=== PATIENT | male | born 1970 | race Caucasian/White ===

== ENCOUNTER 2024-05-26 19:31 | Inpatient (IN) | payer MEDICAID, SELFPAY ==
[2024-05-26 19:32] VITALS: BMI 35.9
[2024-05-26 19:41] VITALS: BP 156/91; PULSE 114; RESP 19; TEMP 37.9; O2SAT 96
--- NOTE | 2024-05-26 19:56 | XR_ITS ---
Examination: Duplex scan of the lower extremity, unilateral right complete Date and time of exam: May 26, 2024 2146 hrs. Indications: Right leg swelling and pain redness in the calf. Today Technique: Duplex scan of the extremity veins using B-mode/grayscale imaging and Doppler spectral analysis and color flow Attention is directed to internal echogenicity, compression and augmentation involving these veins, color flow assessment, spectral analysis Findings: Major deep venous structures in the extremity demonstrate normal course and caliber. No diagnostic visualization right peroneal vein There is no evidence of deep vein thrombosis. Normal color flow and spectral analysis Impression: Negative for DVT..
--- NOTE | 2024-05-26 19:57 | XR_ITS ---
Examination: Foot, right, 3 views Technique: AP, oblique, lateral views foot, 3 views Date and time of exam: May 26, 20242003 hrs. Indications: Nonhealing wound plantar surface of the heel 6 months Findings: Prominent osteopenia No fracture No miguelina cortical bone destruction No foreign body Impression: No miguelina cortical bone obstruction Consider MRI foot without contrast follow-up
--- NOTE | 2024-05-26 19:58 | EDRME_ITS ---
Rapid Medical Screening Exam [facility] Arrival date/time: 05/26/24 19:31 54M with history of HTN and various bilateral hip surgeries presents to ED with several days of R lower leg pain, redness swelling, and fevers/chills. Patient has a wound/cut on his R heel that he doesn't know how long has been there. Patient denies known history of DM. Chief Complaint: Extremity Injury, Lower Vital signs: Vital Signs Temperature 100.3 F 05/26/24 19:41 Pulse Rate 114 H 05/26/24 19:41 Respiratory Rate 19 05/26/24 19:41 Blood Pressure 156/91 H 05/26/24 19:41 Pulse Oximetry (%) 96 05/26/24 19:41 Oxygen Delivery Method Room Air 05/26/24 19:41
[2024-05-26 20:14] LABS: Lactate (Lactic Acid) 1.6 mMol/L (0.4-2.0)
[2024-05-26 20:16] LABS: Basophils # (Auto) 0.1 Thou/mm3 (0.0-0.2); Basophils % (Auto) 0 % (0-2.5); Eosinophils % (Auto) 0 % (0-10); Hematocrit 45.2 % (41.0-53.0); Hemoglobin 15.8 g/dL (13.5-16.0); Immature Granulocytes % (Auto) 0 % (0-0); Immature Granulocytes Auto 0.09 Thou/mm3 (0.00-0.00); Lymphocytes # (Auto) 0.9 Thou/mm3 (1.0-4.8); Lymphocytes % (Auto) 4 % (10-50); Mean Corpuscular Hemoglobin 30.7 pg (25.0-35.0); Mean Corpuscular Volume 88 fL (80-100); Monocytes # (Auto) 0.7 Thou/mm3 (0.0-0.8); Monocytes % (Auto) 3 % (0-12); Neutrophils # (Auto) 19.7 Thou/mm3 (1.8-7.7); Neutrophils % (Auto) 92 % (37-80); Nucleated Red Blood Cell % 0 /100 WBC (0); Platelet Count 180 Thou/mm3 (140-440); RDW Standard Deviation 42.7 fL (35.1-43.9); Red Blood Count 5.14 Miln/mm3 (4.50-5.90); White Blood Count 21.5 Thou/mm3 (3.8-10.6)
[2024-05-26 20:39] LABS: Alanine Aminotransferase 54 U/L (10-49); Albumin, Serum 4.6 gm/dL (3.5-5.0); Albumin/Globulin Ratio 1.8 (1.2-2.2); Alkaline Phosphatase 62 U/L (46-116); Anion Gap 6 (7-16); Aspartate Amino Transferase 37 U/L (0-34); BUN/Creatinine Ratio 12 Ratio (12-20); Bilirubin,Total 1.3 mg/dL (0.3-1.2); Blood Urea Nitrogen 11 mg/dL (9-23); Calcium 9.8 mg/dL (8.3-10.6); Calcium (Corrected) 9.8 mg/dL (8.5-10.1); Carbon Dioxide 25.1 mMol/L (20.0-31.0); Chloride 101 mMol/L (98-107); Creatinine (Component) 0.9 mg/dL (0.6-1.3); Estimated Creatinine Clearance 131.3 mL/min (>60); Globulin 2.6 gm/dL (2.3-3.5); Glucose 121 mg/dL (74-106); Osmolality,Calculated 264 (275-295); Procalcitonin 0.88 ng/ml (0.0-0.49); Sodium 132 mMol/L (136-145); Total Protein 7.2 gm/dL (5.7-8.2); eGFR > 60 See Note
--- NOTE | 2024-05-26 20:56 | XR_ITS ---
Examination: Tibia-Fibula, right , 2 views Technique: Tibia-fibula AP lateral 2 views Date and time of exam: May 26, 2024 2101 hrs. Indications: Nonhealing wound in the lower leg 6 months Findings: No fracture or dislocation No miguelina cortical bone destruction Impression: No miguelina cortical bone obstruction
--- NOTE | 2024-05-26 21:01 | EDNOTE_ITS ---
ED Skin Abcess FB-RME/HPI General Chief complaint: Extremity Injury, Lower Stated complaint: RIGHT LEG PAIN, FEVER Arrival date/time: 05/26/24 19:31 RME / HPI RME / HPI narrative: 05/26/24 19:31 54M with history of HTN on losartan, hip surgeries by , presented to the ED due to history of 1 day of right lower extremity pain and swelling. Patient reported that he started to have right leg and heel pain that started acutely over the past 24 hours. The patient also reported hotness and redness of his right leg associated with chills and fever. Patient denied any history of trauma or fall down, however he reported that he has chronic leg fissures on the heel. His reported that he does not wear safety boots and sometimes walk barefoot or use sandals. also reported that she noticed some swelling of his ankle however he denied any shortness of breath, chest pain, orthopnea or paroxysmal nocturnal dyspnea. Related Data Home Medications ?Medication ?Instructions ?Recorded ?Confirmed ibuprofen 800 mg tablet 800 mg PO Q8H PRN Pain 01/31/24 05/26/24 losartan 100 mg tablet 100 mg PO HS 02/02/24 05/26/24 tramadol 50 mg tablet 50 mg PO [id number] PRN Pain 05/26/24 05/26/24 Previous Rx's ?Medication ?Instructions ?Recorded acetaminophen 500 mg tablet 1,000 mg (2 x 500 mg) PO Q6H PRN 02/24/24 (Acetaminophen Extra Strength) pain #90 tabs Allergies Allergy/AdvReac Type Severity Reaction Status Date / Time No Known Allergies Allergy Verified 05/26/24 19:35 ED Exam Narrative Physical exam: GEN: AOx3, able to speak full sentences HEENT: NC/AC, oral mucosa moist, neck supple CVS: RRR, S1-S2 present, no murmurs appreciated RESP: CTAB GI: soft,non distended, non tender, NBS MSK: able to move all 4 limbs, no lower extremity edema SKIN: Right leg swelling, redness, hotness and tenderness extending from the ankle up to the upper third of the right leg. Pulses intact, black discoloration of the second and third nail toe was noticed however patient denied any trauma. Chronic fissure was noticed on the right heel however no signs of discharge or redness. [employer] OFFICER: CN II-XII and Sensation grossly intact. Course Quality Measures Current suspected stage: sepsis Possible source: skin/soft tissue Blood cultures ordered: yes Antibiotic ordered: Yes Pertinent labs: 05/26/24 20:05 Lactic Acid 1.6 mMol/L (0.4-2.0) Procalcitonin 0.88 H ng/ml (0.0-0.49) sepsis Orders Category Date Time Status US venous doppler LE RT Stat Exams 05/26/24 19:56 Completed XR foot comp RT min 3V Stat Exams 05/26/24 19:57 Completed XR tibia fibula RT 2V Stat Exams 05/26/24 20:56 Completed Blood Culture (Lab) Stat Lab 05/26/24 20:05 Received CBC Stat Lab 05/26/24 20:05 Completed CMP [Comprehensive Metabolic Panel] Stat Lab 05/26/24 20:05 Completed CRP [C-Reactive Protein] Stat Lab 05/26/24 20:05 Completed ESR [Sed Rate (ESR)] Stat Lab 05/26/24 20:05 Completed Lactate (Lactic Acid) Stat Lab 05/26/24 20:05 Completed Procalcitonin Stat Lab 05/26/24 20:05 Completed UA [Urinalysis] Stat Lab 05/27/24 00:20 Received Urine Culture Stat Lab 05/27/24 00:20 Received Acetaminophen Tab [Tylenol ES Tab] Med 05/26/24 21:11 Discontinued 1,000 mg PO X1 ONE Clindamycin 900Mg Ivpb [Cleocin/D5w Ivpb] 50 ml Med 05/26/24 20:56 Discontinued IV X1 Labetalol IV [Trandate IV] Med 05/26/24 22:31 Discontinued 10 mg IVP X1 ONE Ringers Lactated 1000 ml [Lactated Ringers] 1,000 ml Med 05/26/24 20:54 Discontinued IV 999 mls/hr Ringers Lactated 1000 ml [Lactated Ringers] 1,000 ml Med 05/26/24 20:54 Discontinued IV 999 mls/hr Sodium Chloride 0.9% 1000 ml [Ns] 1,000 ml Med 05/26/24 21:16 Discontinued IV 999 mls/hr Sodium Chloride 0.9% 1000 ml [Ns] 1,000 ml Med 05/26/24 21:17 Discontinued IV 999 mls/hr cefTRIAXone/D5w 1gm IV premix [Rocephin/D5w 1gm IV Med 05/26/24 20:55 Discontinued premix] 50 ml IV QDAY Vital Signs Vital signs: Vital Signs Temperature 100.3 F 05/26/24 19:41 Pulse Rate 114 H 05/26/24 19:41 Respiratory Rate 19 05/26/24 19:41 Blood Pressure 156/91 H 05/26/24 19:41 Pulse Oximetry (%) 96 05/26/24 19:41 Oxygen Delivery Method Room Air 05/26/24 19:41 Skin / Abscess / Foreign Body MDM Narrative MDM Narrative:: X-ray of the right foot was negative for any fracture or osteomyelitis. Patient met sepsis criteria with WBC of 21, pulse rate of 105, temperature of 100.3, and source of infection cellulitis. We ordered for the patient venous Doppler ultrasound of the right lower extremity to rule out any DVT. We started the patient on IV fluid therapy and intravenous ceftriaxone and clindamycin. Will consult the hospitalist for possible admission. Patient data External records reviewed:: [facility] previous records Clinical information provided by:: patient Social determinants that could affect healthcare access:: alcohol use Patient has the following chronic illnesses:: HTN Alcohol use disorder How is presenting disease/condition affected by chronic disease/condition?: uneffected by Evaluation data The following diagnostics were reviewed and interpreted by me:: lab results, radiology exam(s) and EKG tracing(s) Lab and/or radiology exams considered but not ordered:: None Interpretation Summary: Sepsis secondary to Ceullulitis of the right leg Chronic right foot ulcer Medications / Prescriptions Medications or Prescriptions considered but not ordered:: None Medication administrations:: Medication Administration History Acetaminophen (Acetaminophen 325 Mg Tablet) 650 mg PO Q6H PRN PRN Reason: Fever >101.5 Stop: 06/25/24 22:54 Amlodipine Besylate (Amlodipine Besylate 5 Mg Tablet) 5 mg PO QDAY [facility] Stop: 06/26/24 08:59 Heparin Sodium (Porcine) (Heparin Sod Inj 5000 Unit/Ml Vial) 5,000 unit SC Q8HR [facility] Stop: 06/10/24 05:59 Sodium Chloride (Ns) 1,000 mls @ 75 mls/hr IV .[id number] ONE Stop: 05/27/24 12:18 Last Admin: 05/27/24 00:36 Dose: 75 mls/hr Documented By: KELLY Cefazolin Sodium/Dextrose (Ancef Ivpb) 1 gm in 50 mls @ 100 mls/hr IV Q8HR [facility] Stop: 06/02/24 23:06 Last Admin: 05/27/24 00:35 Dose: 100 mls/hr Documented By: KELLY Vancomycin/Sodium Chloride (Vancomycin/Ns 1 Gm Ivpb) 200 mls @ 120 mls/hr IV Q100M [facility] Stop: 05/27/24 02:34 Losartan Potassium (Losartan Potassium 25 Mg Tablet) 100 mg PO QDAY [facility] Stop: 06/26/24 08:59 Ondansetron HCl (Ondansetron Inj 2 Mg/Ml Inj 2 Ml) 4 mg IV Q6H PRN; Protocol PRN Reason: NAUSEA OR VOMITING Stop: 06/25/24 22:54 Oxycodone/Acetaminophen (Oxycodone/Apap 5/325 Tablet) 1 tab PO Q6H PRN PRN Reason: PAIN SCALE 4-6 (Moderate Stop: 05/31/24 22:54 Pharmacy Consult (Vancomycin Pharmacy To Dose 1 Each Each) 1 each IV QDAY [facility] Stop: 06/26/24 08:59 Discontinued Medications Acetaminophen (Acetaminophen 500 Mg Tablet) 1,000 mg PO X1 ONE Stop: 05/26/24 21:12 Last Admin: 05/26/24 21:19 Dose: 1,000 mg Documented By: KELLY Lactated Ringer's (Lactated Ringers) 1,000 mls @ 999 mls/hr IV .Q1H1M ONE Stop: 05/26/24 21:54 Last Admin: 05/26/24 22:04 Dose: Not Given Documented By: MOE Non-Admin Reason: Discontinued Lactated Ringer's (Lactated Ringers) 1,000 mls @ 999 mls/hr IV .Q1H1M ONE Stop: 05/26/24 21:54 Last Admin: 05/26/24 22:04 Dose: Not Given Documented By: MOE Non-Admin Reason: Discontinued Ceftriaxone Sodium/Dextrose (Rocephin/D5w 1gm Iv Premix) 50 mls @ 100 mls/hr IV QDAY [facility] Stop: 06/02/24 20:54 Last Infusion: 05/26/24 22:27 Dose: Infused Documented By: Admin: 05/26/24 21:14 Dose: 100 mls/hr Documented By: KELLY Clindamycin Phosphate (Cleocin/D5w Ivpb) 50 mls @ 100 mls/hr IV X1 ONE Stop: 05/26/24 21:25 Last Infusion: 05/26/24 22:26 Dose: Infused Documented By: Admin: 05/26/24 21:21 Dose: 100 mls/hr Documented By: TC Sodium Chloride (Ns) 1,000 mls @ 999 mls/hr IV .Q1H1M ONE Stop: 05/26/24 22:16 Last Infusion: 05/26/24 22:27 Dose: Infused Documented By: Admin: 05/26/24 21:20 Dose: 999 mls/hr Documented By: TC Sodium Chloride (Ns) 1,000 mls @ 999 mls/hr IV .Q1H1M ONE Stop: 05/26/24 22:17 Last Infusion: 05/26/24 22:27 Dose: Infused Documented By: Admin: 05/26/24 21:21 Dose: 999 mls/hr Documented By: TC Labetalol HCl (Labetalol Inj 5 Mg/Ml Vial 20 Ml) 10 mg IVP X1 ONE Stop: 05/26/24 22:32 Last Admin: 05/26/24 22:37 Dose: 10 mg Documented By: TC As above if given Consultations Consultation(s) initiated? (list below): Yes Diagnosis Skin/Abscess Differential Diagnosis: abscess of skin or subcutaneous tissue, allergic reaction to drug, cellulitis and impetigo Most likely diagnosis given after review of the tests above:: Cellulitis Admission Indicated Admission indicated?: indicated Admission Request Was there a request for admission?: Yes Admission Attestation Admission request attestation: Discussed case with [] from Hospitalist service regarding admission. Discussed patients ED course, exam findings, labs, and radiology results. The Hospitalist [agrees,declines] to accept the patient for admission. Disposition Plan Disposition Plan: Admit Discharge Plan Plan Patient Disposition: Admit Acute Care w/in Hospital Problem List Clinical Impression: Cellulitis of leg, right
[2024-05-26] MEDS: cefTRIAXone/D5w 1gm IV premix 50 ML IV (21:14)
[2024-05-26 21:15] LABS: Sed Rate (ESR) 19 mm/hr (0-20)
[2024-05-26 21:19] VITALS: TEMP 37.2
[2024-05-26] MEDS: ACETAMINOPHEN 500 MG TABLET 1000 MG PO (21:19)
[2024-05-26] MEDS: SODIUM CHLORIDE 0.9% 1000 ML 1,000 ML 999 ML IV ×2 (21:20→21:21)
[2024-05-26] MEDS: CLINDAMYCIN 900MG IVPB 50 ML 100 MG IV (21:21)
[2024-05-26 22:37] VITALS: BP 209/138; PULSE 96
[2024-05-26] MEDS: LABETALOL INJ 5 MG/ML VIAL 20 ML 10 MG IVP (22:37)
--- NOTE | 2024-05-26 23:08 | PD.RESHP ---
Documentation for date of: 05/26/24 [facility] History of Present Illness History of present illness: 54-year-old male patient with significant medical history for obesity, b/l hip replacement and hypertension came into ED for right leg swelling and pain that started x 24 hours ago. Patient has also been endorsing intermittent chills and fevers with the highest temperature being 101 F at home. Patient denied nausea, vomiting, chest pain/pressure, diarrhea, abdominal pain or other associate symptoms. Patient does have a history of chronic right heel fissure and usually walks barefoot on his for. Patient denied having any other trauma to the foot. ED vitals significant for BP 156/91, pulse 114, temperature 100.3 which up trended to 102.6 F. Labs were significant for WBC 21.5, glucose 121, T. bili 1.3, AST 37, ALT 54, CRP 15, procalcitonin 0.88. Foot and tibia-fibula x-ray were negative for cortical bone destruction. Venous Doppler study was negative for DVT. Patient was administered bolus IVF per sepsis protocol and will be admitted for cellulitis requiring IV antibiotics. Medical Hx: Hypertension and obesity Medications (need reconciliation): Lisinopril and amlodipine Surgical Hx: b/l hip replacement Social Hx: Denies smoking cigarettes, drinks 6 beers/day since age 17 (last alcohol intake x2 days ago) Allergies: NKDA CODE STATUS: Full code Review of Systems Review of Systems Systems Reviewed: All systems reviewed, normal except as documented Exam Vital Signs Temp Pulse Resp BP Pulse Ox O2 Del Method 98.9 F 96 19 209/138 H 96 Room Air 05/26/24 21:19 05/26/24 22:37 05/26/24 19:41 05/26/24 22:37 05/26/24 19:41 05/26/24 19:41 Narrative Exam Constitutional: well-developed, well-nourished, in mild distress, lying in bed HEENT: NCAT, EOMI, reactive round pupils b/l, patent nares b/l, moist mucous membranes Lung: CTAB, no wheezing, no rhonchi Heart: Regular S1S2, no murmurs, gallops, or rubs Abdomen: Soft, non-distended, non-tender, bowel sounds present throughout Extremities: No cyanosis, clubbing, or edema, LE pulses present b/l Neurologic: No focal sensory or motor deficits noted, AOx3, appropriate affect Skin: Erythema and swelling of right leg extending to calf, tender on palpation of right ankle and calf, dry fissure of right heel noted Results: Labs 05/26/24 20:05 05/26/24 20:05 Labs: Short CBC 05/26/24 Range/Units 20:05 WBC 21.5 H (3.8-10.6) Thou/mm3 Hgb 15.8 (13.5-16.0) g/dL Hct 45.2 (41.0-53.0) % Plt Count 180 (140-440) Thou/mm3 BMP 05/26/24 20:05 Sodium 132 L Potassium 4.0 Chloride 101 Carbon Dioxide 25.1 BUN 11 Creatinine 0.9 Glucose 121 H Calcium 9.8 Liver Function 05/26/24 Range/Units 20:05 Total Bilirubin 1.3 H (0.3-1.2) mg/dL AST 37 H (0-34) U/L ALT 54 H (10-49) U/L Alkaline Phosphatase 62 (46-116) U/L Albumin 4.6 (3.5-5.0) gm/dL Quality Measures Quality Measures sepsis Current suspected stage: sepsis Possible source: skin/soft tissue Blood cultures ordered: yes Antibiotic ordered: Yes Medications Home Medications and Allergies Home Medications ?Medication ?Instructions ?Recorded ?Confirmed ?Type ibuprofen 800 mg tablet 800 mg PO Q8H PRN Pain 01/31/24 05/26/24 History losartan 100 mg tablet 100 mg PO HS 02/02/24 05/26/24 History tramadol 50 mg tablet 50 mg PO [id number] PRN Pain 05/26/24 05/26/24 History Allergies Allergy/AdvReac Type Severity Reaction Status Date / Time No Known Allergies Allergy Verified 05/26/24 19:35 Visit Medications Acetaminophen (Acetaminophen 325 Mg Tablet) 650 mg PO Q6H PRN PRN Reason: Fever >101.5 Stop: 06/25/24 22:54 Heparin Sodium (Porcine) (Heparin Sod Inj 5000 Unit/Ml Vial) 5,000 unit SC Q8HR [facility] Stop: 06/10/24 05:59 Sodium Chloride (Ns) 1,000 mls @ 75 mls/hr IV .[id number] ONE Stop: 05/27/24 12:18 Cefazolin Sodium/Dextrose (Ancef Ivpb) 1 gm in 50 mls @ 100 mls/hr IV Q8HR [facility] Stop: 06/02/24 23:06 Ondansetron HCl (Ondansetron Inj 2 Mg/Ml Inj 2 Ml) 4 mg IV Q6H PRN; Protocol PRN Reason: NAUSEA OR VOMITING Stop: 06/25/24 22:54 Oxycodone/Acetaminophen (Oxycodone/Apap 5/325 Tablet) 1 tab PO Q6H PRN PRN Reason: PAIN SCALE 4-6 (Moderate Stop: 05/31/24 22:54 Pharmacy Consult (Vancomycin Pharmacy To Dose 1 Each Each) 1 each IV QDAY [facility] Stop: 06/26/24 08:59 Discontinued Medications Acetaminophen (Acetaminophen 500 Mg Tablet) 1,000 mg PO X1 ONE Stop: 05/26/24 21:12 Last Admin: 05/26/24 21:19 Dose: 1,000 mg Lactated Ringer's (Lactated Ringers) 1,000 mls @ 999 mls/hr IV .Q1H1M ONE Stop: 05/26/24 21:54 Last Admin: 05/26/24 22:04 Dose: Not Given Lactated Ringer's (Lactated Ringers) 1,000 mls @ 999 mls/hr IV .Q1H1M ONE Stop: 05/26/24 21:54 Last Admin: 05/26/24 22:04 Dose: Not Given Ceftriaxone Sodium/Dextrose (Rocephin/D5w 1gm Iv Premix) 50 mls @ 100 mls/hr IV QDAY [facility] Stop: 06/02/24 20:54 Last Infusion: 05/26/24 22:27 Dose: Infused Clindamycin Phosphate (Cleocin/D5w Ivpb) 50 mls @ 100 mls/hr IV X1 ONE Stop: 05/26/24 21:25 Last Infusion: 05/26/24 22:26 Dose: Infused Sodium Chloride (Ns) 1,000 mls @ 999 mls/hr IV .Q1H1M ONE Stop: 05/26/24 22:16 Last Infusion: 05/26/24 22:27 Dose: Infused Sodium Chloride (Ns) 1,000 mls @ 999 mls/hr IV .Q1H1M ONE Stop: 05/26/24 22:17 Last Infusion: 05/26/24 22:27 Dose: Infused Labetalol HCl (Labetalol Inj 5 Mg/Ml Vial 20 Ml) 10 mg IVP X1 ONE Stop: 05/26/24 22:32 Last Admin: 05/26/24 22:37 Dose: 10 mg Assessment & Plan Plan 54-year-old male patient with significant medical history for obesity, b/l hip replacement and hypertension came into ED for right leg swelling and pain that started x 24 hours ago. Patient was administered bolus IVF per sepsis protocol and will be admitted for cellulitis requiring IV antibiotics. #Sepsis secondary to #Cellulitis #Right heel fissure Patient with acute right leg swelling and pain Patient has been endorsing intermittent chills and fever Vitals significant for tachycardia and fever Admission labs significant for leukocytosis, elevated CRP, elevated Pro-Meng Doppler ultrasound negative for DVT Plan: ? Start Vanco and cefazolin IV ? Acetaminophen and [place] for pain management ? Blood cultures ordered ? Follow-up CBC #Alcohol abuse Drinks 6 beers/day, last alcohol intake x2 days ago Plan: - Counseled on alcohol cessation - CIWA protocol #Hypertension On admission patient with BP 156/91 Patient on home meds of amlodipine and losartan Plan: ? Restart home med amlodipine and losartan after reconciliation ? Labetalol 10 mg IV as needed for SBP greater than 170 #Obesity Plan: Follow up lipid panel and A1c Health Maintenance Dispo: Patient admitted for cellulitis requiring IV antibiotics low carb consistent Diet: Low carb DVT/PPx: Heparin GI ppx: None Lines: PIV Code Status: Full Code This patient care was discussed with my attending Dr. Carlie Linn MD PGY-2 Disclaimer: Minor errors in hand coper may be present since this note was dictated by speech recognition software. Attending Provider Attestation/Addendum I reviewed labs, imaging, EKG, home medications and prior available records. Face to face evaluation was performed by me. I have personally examined the patient and discussed assessment and plan with the IM team. I reviewed the resident note and agree with the plan with exceptions as below. 54-year-old male with history of hypertension who presented with a chief complaint of right lower extremity swelling and pain, fevers, and was found to have sepsis secondary to cellulitis. Sepsis secondary to right lower extremity cellulitis: He meets sepsis criteria and his physical exam is highly suggestive of cellulitis. Started the patient on IV vancomycin and cefazolin given the rapid progression of erythema that is concerning for MRSA. Send blood cultures and MRSA nares. Trend WBC. Continue IV fluids per sepsis protocol. Ordered ultrasound of the lower extremity to rule out DVT. Obesity grade 2: Outpatient management
[2024-05-26 23:30] VITALS: BP 159/100; PULSE 95; RESP 18; TEMP 37.2; O2SAT 95
[2024-05-27] VITALS (11 sets, daily range): BP systolic 128–164; BP diastolic 83–99; PULSE 90–106; RESP 16–94; TEMP 36.4–39.2; O2SAT 93–95; BMI 35.9; BMI 39.4
--- NOTE | 2024-05-27 | XR_ITS ---
Examination: MRI right lower leg, without intravenous contrast. MRI right lower leg , with intravenous contrast. Exam date and time: May 26, 2024 1835 hrs. Indications: Nonhealing wound lower leg 6 months Technique: Multiple axial, sagittal and coronal images of the right lower leg have been obtained with the Siemens high-resolution 1.5 Janet MRI scanner. Images obtained included T2 weighted fat suppressed sagittal sections, TR 3500, TE 46, T2 weighted coronal fat suppressed images, TR 3050, TE 84, T2-weighted transverse fat suppressed images, TR 30-60, TE 63, proton density transverse images, TR 4720, TE 46, and T1 weighted coronal images, TR 560, TE 13. Axial, sagittal and coronal images are obtained post intravenous injection 20 cc gadolinium. Findings: Pronounced edema anterior to the tibia and generalized cellulitis edema surrounding the lower leg Marked enhancement in the gastrocnemius muscle consistent with myositis No miguelina cortical bone destruction Negative for osteomyelitis No soft tissue abscess Impression: Negative for osteomyelitis No soft tissue abscess Extensive cellulitis Pronounced myositis involving the medial gastrocnemius muscle
--- NOTE | 2024-05-27 | XR_ITS ---
Examination: MRI right foot, without intravenous contrast. MRI right foot , with intravenous contrast. Exam date and time: May 27, 2024 1835 hrs. Indications: Right lower extremity redness swelling and pain, nonhealing wound plantar surface of the medial beginning 6 months ago Technique: Multiple axial, sagittal and coronal images of the right foot have been obtained with the Siemens high-resolution 1.5 Janet MRI scanner. Images obtained included T2 weighted fat suppressed sagittal sections, TR 3500, TE 46, T2 weighted coronal fat suppressed images, TR 3050, TE 84, T2-weighted transverse fat suppressed images, TR 30-60, TE 63, proton density transverse images, TR 4720, TE 46, and T1 weighted coronal images, TR 560, TE 13. Axial, sagittal and coronal images are obtained post intravenous injection 20 cc gadolinium. Findings: Diffuse edema in the subcutaneous fatty tissues surrounding the foot No soft tissue abscess No miguelina cortical bone destruction Moderate osteoarthritis first metatarsophalangeal joint Significant plantar fasciitis Thickening of the Achilles tendon Negative for sinus Tarsi syndrome Impression: Diffuse edema surrounding the foot Negative for osteomyelitis Negative for soft tissue abscess
[2024-05-27 00:33] LABS: Collection Type, Urine Clean Catch; RBC,Urine 0 /hpf (0-3); Squamous Epithelial Cell,Urine 0 /hpf (0-5); WBC,Urine 0 /hpf (0-5)
[2024-05-27] MEDS: ceFAZolin/D5W 1 GM IVPB 1 GM/50 ML BAG IV ×2 (00:35→05:32)
[2024-05-27] MEDS: SODIUM CHLORIDE 0.9% 1000 ML 1,000 ML 75 ML IV (00:36)
[2024-05-27] MEDS: VANCOMYCIN/NS 1 GM IVPB 200 ML IV ×4 (01:01→21:37)
[2024-05-27 01:11] LABS: Bacteria,Urine Rare; Bilirubin,Urine Negative (Negative); Blood,Urine Negative (Negative); Clarity,Urine Clear (Clear/Hazy); Color,Urine Lt-Yellow (Lt Yel-Yel); Glucose, Urine Negative (Negative); Ketones,Urine Trace (Negative); Leukocyte Esterase,Urine Negative (Negative); Nitrite,Urine Negative (Negative); Protein,Urine Negative (Neg - Trace); Specific Gravity,Urine 1.013 (1.001-1.035); Urobilinogen,Urine Negative mg/dL (0.0-1.0)
--- NOTE | 2024-05-27 02:51 | PC.NURSE ---
Patient has fever of 102.6. Last tylenol was given at 2114. CURTIS Lucas called Dr. Sexton and he said to go ahead and give it.
[2024-05-27] MEDS: ACETAMINOPHEN 325 MG TABLET 650 MG PO (02:56)
--- NOTE | 2024-05-27 03:54 | PC.NURSE ---
CURTIS Lucas called warehouse hand to get a bag of Vancomycin 1gm as there is none available on the unit.
[2024-05-27] MEDS: HEPARIN SOD INJ 5000 UNIT/ML VIAL SC ×3 (05:36→21:37)
[2024-05-27] MEDS: THIAMINE INJ 100 MG/ML VIAL 2 ML IM (05:37)
[2024-05-27 05:48] LABS: Basophils % (Auto) 0 % (0-2.5); Eosinophils % (Auto) 0 % (0-10); Hematocrit 42.8 % (41.0-53.0); Hemoglobin 14.9 g/dL (13.5-16.0); Immature Granulocytes % (Auto) 1 % (0-0); Immature Granulocytes Auto 0.12 Thou/mm3 (0.00-0.00); Lymphocytes # (Auto) 0.9 Thou/mm3 (1.0-4.8); Lymphocytes % (Auto) 6 % (10-50); Mean Corpuscular HGB Conc 34.8 g/dl (31.0-37.0); Mean Corpuscular Hemoglobin 31.2 pg (25.0-35.0); Mean Corpuscular Volume 90 fL (80-100); Monocytes # (Auto) 0.7 Thou/mm3 (0.0-0.8); Monocytes % (Auto) 5 % (0-12); Neutrophils # (Auto) 13.2 Thou/mm3 (1.8-7.7); Neutrophils % (Auto) 88 % (37-80); Nucleated Red Blood Cell % 0 /100 WBC (0); Platelet Count 132 Thou/mm3 (140-440); RDW Standard Deviation 43.1 fL (35.1-43.9); Red Blood Count 4.77 Miln/mm3 (4.50-5.90)
[2024-05-27 06:42] LABS: Thyroid Stimulating Hormone 0.85 uIU/mL (0.55-4.78)
[2024-05-27 07:04] LABS: Alanine Aminotransferase 48 U/L (10-49); Albumin, Serum 3.9 gm/dL (3.5-5.0); Albumin/Globulin Ratio 1.6 (1.2-2.2); Alkaline Phosphatase 57 U/L (46-116); Anion Gap 10 (7-16); Aspartate Amino Transferase 37 U/L (0-34); BUN/Creatinine Ratio 10 Ratio (12-20); Blood Urea Nitrogen 9 mg/dL (9-23); Calcium 10.1 mg/dL (8.3-10.6); Calcium (Corrected) 10.2 mg/dL (8.5-10.1); Carbon Dioxide 20.3 mMol/L (20.0-31.0); Chloride 105 mMol/L (98-107); Creatinine (Component) 0.9 mg/dL (0.6-1.3); Estimated Creatinine Clearance 137.8 mL/min (>60); Globulin 2.5 gm/dL (2.3-3.5); Glucose 100 mg/dL (74-106); Magnesium 1.7 mg/dL (1.6-2.6); Osmolality,Calculated 268 (275-295); Phosphorous 2.1 mg/dL (2.4-5.1); Potassium 3.6 mMol/L (3.4-5.1); Sodium 135 mMol/L (136-145); Total Protein 6.4 gm/dL (5.7-8.2); eGFR > 60 See Note
[2024-05-27] MEDS: amLODIPine BESYLATE 5 MG TABLET PO (09:10)
[2024-05-27] MEDS: LOSARTAN POTASSIUM 25 MG TABLET 100 MG PO (09:10)
[2024-05-27] MEDS: THIAMINE 100 MG TABLET PO ×2 (09:10→20:38)
[2024-05-27] MEDS: FOLIC ACID 1 MG TABLET PO ×2 (09:10→20:38)
--- NOTE | 2024-05-27 09:25 | ESPR_ITS ---
<Statement entered by Jenny Zheng DO - 05/27/24 17:17> Senior attestation: Patient was examined and case was reviewed with team including attending physician. Note reviewed, I agree with most of its contents and agree with the patient's care. Antibiotics adjusted to vancomycin and unasyn, will order MRI of right leg for further evaluation of possible osteomyelitis. Jenny Zheng DO PGY-3 Documentation for date of: 05/27/24 Subjective Subjective Interval history: No acute overnight events. Patient seen and evaluated at bedside. Labs reviewed. Patient endorses pain and tenderness of the right leg below the knee and on right heel. He states that ulcer present on his foot for more than 5 days. Pain on his right foot was worsening leading to hospital visit. Patient denies headache, chills, nausea, or vomiting. Ancef was discontinued and Unasyn was ordered every 6 hours. MRI of the right leg and foot ordered to assess for possible osteomyelitis. A1c ordered. Exam Vital Signs Temp Pulse Resp BP Pulse Ox O2 Del Method 99.3 F 101 H 20 141/86 H 93 L Room Air 05/27/24 08:00 05/27/24 09:10 05/27/24 08:57 05/27/24 09:10 05/27/24 08:00 05/27/24 08:00 Narrative Exam Constitutional: well-developed, obese male, in no acute distress, lying in bed HEENT: NCAT, EOMI, reactive round pupils b/l, patent nares b/l. Lung: CTAB, no wheezing, no rhonchi Heart: Regular S1S2, no murmurs, gallops, or rubs Abdomen: Soft, non-distended, non-tender. No masses noted. Extremities: No cyanosis, clubbing, or edema, 1+ dorsalis pedis right foot, 2+ dorsalis pedis left foot . Neurologic: No focal sensory or motor deficits noted, AOx3, appropriate affect Skin: Erythema and swelling below the knee extending to the foot, tender on palpation of right ankle and calf, quarter size dry fissure of right heel noted Objective Labs 05/28/24 04:53 05/28/24 04:53 Labs: Laboratory Results - last 24 hr 05/26/24 05/27/24 05/27/24 20:05 00:20 05:01 WBC 21.5 H 15.0 H D RBC 5.14 4.77 Hgb 15.8 14.9 Hct 45.2 42.8 MCV 88 90 MCH 30.7 31.2 MCHC 35.0 34.8 RDW Std Deviation 42.7 43.1 Plt Count 180 132 L D Neut % (Auto) 92 H 88 H Lymph % (Auto) 4 L 6 L [place] % (Auto) 3 5 Eos % (Auto) 0 0 Baso % (Auto) 0 0 Neut # (Auto) 19.7 H 13.2 H Lymph # (Auto) 0.9 L 0.9 L [place] # (Auto) 0.7 0.7 Eos # (Auto) 0.0 0.0 Baso # (Auto) 0.1 0.0 Immature Gran # (Auto) 0.09 H 0.12 H Absolute Nucleated RBC 0.00 0.00 Immature Gran % 0 1 H Nucleated RBC % 0 0 ESR 19 Sodium 132 L 135 L Potassium 4.0 3.6 Chloride 101 105 Carbon Dioxide 25.1 20.3 Anion Gap 6 L 10 BUN 11 9 Creatinine 0.9 0.9 Estim Creat Clear Calc 131.3 137.8 eGFR > 60 > 60 BUN/Creatinine Ratio 12 10 L Glucose 121 H 100 Calculated Osmolality 264 L 268 L Lactic Acid 1.6 Calcium 9.8 10.1 Corrected Calcium 9.8 10.2 H Phosphorus 2.1 L Magnesium 1.7 Total Bilirubin 1.3 H AST 37 H 37 H ALT 54 H 48 Alkaline Phosphatase 62 57 C-Reactive Prot, Quant 15.0 H Total Protein 7.2 6.4 Albumin 4.6 3.9 D Globulin 2.6 2.5 Albumin/Globulin Ratio 1.8 1.6 Procalcitonin 0.88 H TSH 0.85 Ur Collection Type Clean Catch Urine Color Lt-Yellow Urine Clarity Clear Urine pH 7.0 Ur Specific [place] 1.013 Urine Protein Negative Urine Glucose (UA) Negative Urine Ketones Trace Urine Blood Negative Urine Nitrite Negative Urine Bilirubin Negative Urine Urobilinogen (Auto) Negative Ur Leukocyte Esterase Negative Urine RBC 0 Urine WBC 0 Ur Squamous Epith Cells 0 Urine Bacteria Rare Quality Measures Quality Measures sepsis Current suspected stage: sepsis Possible source: skin/soft tissue Blood cultures ordered: yes Antibiotic ordered: Yes Assessment & Plan Assessment Current Active Medications: Generic Name Dose Route Start Last Admin Trade Name Freq PRN Reason Stop Dose Admin Acetaminophen 650 mg 05/26/24:55 05/27/24 02:56 Acetaminophen 325 Mg Tablet PO 06/25/24 22:54 650 mg Q6H PRN Administration Fever >101.5 Amlodipine Besylate 5 mg 05/27/24 09:00 05/27/24 09:10 Amlodipine Besylate 5 Mg Tablet PO 06/26/24 08:59 5 mg QDAY VA Administration Folic Acid 1 mg 05/27/24 09:00 05/27/24 09:10 Folic Acid 1 Mg Tablet PO 06/01/24 08:59 1 mg BID VA Administration Heparin Sodium (Porcine) 5,000 unit 05/27/24 06:00 05/27/24 05:36 Heparin Sod Inj 5000 Unit/Ml Vial SC 06/10/24 05:59 5,000 unit Q8HR VA Administration Sodium Chloride 1,000 mls @ 75 mls/hr 05/26/24 22:59 05/27/24 00:36 Ns IV 05/27/24 12:18 75 mls/hr .[id number] ONE Administration Cefazolin Sodium/Dextrose 1 gm in 50 mls @ 100 mls/hr 05/26/24 23:07 05/27/24 05:32 Ancef Ivpb IV 06/02/24 23:06 100 mls/hr Q8HR VA Administration Vancomycin/Sodium Chloride 200 mls @ 120 mls/hr 05/27/24 14:00 Vancomycin/Ns 1 Gm Ivpb IV 06/03/24 13:59 Q8HR VA Lorazepam 0.5 mg 05/27/24 04:35 Lorazepam 2 Mg/Ml Vial IV Q4H PRN CIWA 2-6 Lorazepam 1 mg 05/27/24 04:35 Lorazepam 2 Mg/Ml Vial IV 06/01/24 04:34 Q4H PRN CIWA SCORE 7-11 Lorazepam 2 mg 05/27/24 04:35 Lorazepam 2 Mg/Ml Vial IV 06/01/24 04:34 Q4H PRN CIWA SCORE 12-15 Lorazepam 4 mg 05/27/24 04:35 Lorazepam 2 Mg/Ml Vial IVP Q4H PRN CIWA 16-20 Losartan Potassium 100 mg 05/27/24 09:00 05/27/24 09:10 Losartan Potassium 25 Mg Tablet PO 06/26/24 08:59 100 mg QDAY VA Administration Ondansetron HCl 4 mg 05/26/24 22:55 Ondansetron Inj 2 Mg/Ml Inj 2 Ml IV 06/25/24 22:54 Q6H PRN NAUSEA OR VOMITING Protocol Oxycodone/Acetaminophen 1 tab 05/26/24 22:55 Oxycodone/Apap 5/325 Tablet PO 05/31/24 22:54 Q6H PRN PAIN SCALE 4-6 (Moderate Pharmacy Consult 1 each 05/27/24 09:00 Vancomycin Pharmacy To Dose 1 Each Each IV 06/26/24 08:59 QDAY PRN PROTOCOL Thiamine HCl 100 mg 05/27/24 09:00 05/27/24 09:10 Thiamine 100 Mg Tablet PO 06/01/24 08:59 100 mg BID VA Administration Plan 54-year-old male patient with significant medical history for obesity, b/l hip replacement and hypertension came into ED for right leg swelling and pain that started x 1day. Blood pressure 1 5691, heart rate 114, temperature 100.3 F, and WBC 21.5 with source of infection of the right leg. Patient was administered bolus IVF per sepsis protocol in the ED. Tibia/fibula x-ray showed no miguelina cortical bone obstruction. Right foot x-ray showed osteopenia and no imguelina cortical bone obstruction. Ultrasound Doppler of right lower extremity showed no DVT. He was admitted for cellulitis requiring IV antibiotics, now on Unasyn and Vancomycin. #Sepsis-improving Likely secondary to #Cellulitis #Right heel ulcer #Leukocytosis Patient presented with right foot pain and swollen right leg/foot with chills and fever. Considering patient's unilateral right foot erythema, fever and tenderness on presentation, he clinically presents with cellulitis picture. His pain is not out of proportion and no crepitus on palpation of the skin; therefore necrotizing fasciitis can be ruled out. He was tachycardic with WBC elevated and elevated Pro-Meng meeting SIRS criteria. On physical exam, unilateral below the knee swelling skin appears erythematous and tender to touch. Initial stages of ulceration present on right heel. Remains unclear as to whether has a history of diabetes or new onset diabetes, which may be a risk factor for possible diabetic ulcer if patient in fact turns out to be diabetic. Will order A1c to seek clarity. Tibia/fibula x-ray showed no miguelina cortical bone obstruction. Right foot x-ray showed osteopenia and no miguelina cortical bone obstruction Ultrasound Doppler of right lower extremity showed no DVT. WBCs downtrending. ESR 19,CRP 15. Plan: ? Vanco (05/26/2024- ? Unasyn 3 g every 6 hours (05/27/24- ? Acetaminophen and [place] for pain management ? Blood cultures x2 ; follow-up ?MRI of the right leg, MRI of right foot ordered; F/up ?cefazolin IV (05/26-) ? Follow-up CBC #Thrombocytopenia Possibly secondary to alcohol use versus underlying blood clotting disorder Patient has been history of alcoholism and this may be contributing to his condition. Platelets low at 132. Plan: ?CBC in a.m. #Alcohol abuse Patient endorses to drinking about 6 beers daily. He states that his last drink was about 2 days ago. Plan: - Counseled on alcohol cessation - [facility] protocol as needed - Thiamine and folic acid #Hypertension Chronic, uncontrolled Patient admits to taking amlodipine and losartan. Plan: ? Continue amlodipine 5 mg once daily and losartan 100 mg once daily ? Labetalol 10 mg IV as needed for SBP greater than 170 #Obesity BMI 30 9.4K, 139. 2 kg Lipid panel: triglycerides 72, cholesterol 144, HDL 72. 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 Holder and senior Norm, PGY-3. Thank you, Mckenzie Garcia, PGY-2 Attending Provider Attestation/Addendum Face to face evaluation was performed by me. I have personally seen and examined the patient. I discussed the assessment and plan with the entire medicine team. I reviewed available medical records, imaging studies, laboratory results. I agree with the above subjective data, objective findings, assessment and plan except as corrected by me or noted below Right lower extremity cellulitis, Right lower extremity pain and swelling due to above Essential hypertension on losartan at home according to med rec. -IV antibiotics, switch to IV Unasyn from cefazolin. Was also placed on vancomycin. Obtain MRI to rule out osteomyelitis. Erythema is marked. Patient still with pain and tenderness requiring IV antibiotic for now Ambulation for DVT prophylaxis if remains mainly in bed can add heparin product as well
[2024-05-27] MEDS: LORazepam 2 MG/ML VIAL 0.5 MG IV (10:05)
--- NOTE | 2024-05-27 10:07 | PC.SS ---
This is 54-year-old, , life-partnered male who presented to the ED due to suffering from right leg pain. Patient appeared alert and oriented to self, place and situation. Patient was pleasant. Patient reported that he resides at home with his significant other, Lorrie Brent. Patient is independent with all ADLs, no DME use. 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 Patient's PCP is Shelly Gamble. Patient assigned his significant other, Lorrie Yañez, as his medical decision maker. When medically clear, patient will return home; Lorrie will provide transportation. Discharge Plan: Return home; Lorrie will provide transportation.
[2024-05-27 11:40] LABS: Bilirubin,Total 0.7 mg/dL (0.3-1.2)
[2024-05-27 12:27] LABS: Glucose Estimated Average 94 mg/dL (80-131); Hemoglobin A1C 4.9 % Hgb (4.8-6.0)
[2024-05-27 12:43] LABS: Cholesterol 144 mg/dL (132-200); HDL Cholesterol 72 mg/dL (40-60); LDL Cholesterol,Calculated 58 mg/dL (0-130); Triglycerides 72 mg/dL (30-150)
[2024-05-27] MEDS: oxyCODONE/APAP 5/325 TABLET 1 TAB PO ×2 (13:43→20:36)
[2024-05-27] MEDS: AMPICILLIN/SULBAC INJ 3 GM in SODIUM CHLORIDE 0.9% (P) 100 ML IV ×2 (13:44→20:39)
--- NOTE | 2024-05-27 19:53 | PC.NURSE ---
Patient is currently in MRI.
--- NOTE | 2024-05-27 20:46 | PC.NURSE ---
Addendum entered by Xavier Castellano RN 05/27/24 20:47: Correction. Night medication and pain medication was administered to patient. Family is at bedside with patient. Patient had a 6/10 pain. Original Note: Patient returned to unit from MRI. Night medication was given and
[2024-05-28] VITALS (9 sets, daily range): BP systolic 122–151; BP diastolic 79–105; PULSE 67–108; RESP 17–95; TEMP 36.2–37.1; O2SAT 92–96
[2024-05-28] MEDS: AMPICILLIN/SULBAC INJ 3 GM in SODIUM CHLORIDE 0.9% (P) 100 ML IV ×4 (00:09→18:46)
[2024-05-28] MEDS: oxyCODONE/APAP 5/325 TABLET 1 TAB PO ×4 (02:39→21:53)
[2024-05-28] MEDS: HEPARIN SOD INJ 5000 UNIT/ML VIAL SC ×2 (05:08→20:38)
[2024-05-28 05:54] LABS: Basophils % (Auto) 0 % (0-2.5); Eosinophils % (Auto) 0 % (0-10); Hematocrit 41.2 % (41.0-53.0); Hemoglobin 14.3 g/dL (13.5-16.0); Immature Granulocytes % (Auto) 1 % (0-0); Immature Granulocytes Auto 0.08 Thou/mm3 (0.00-0.00); Lymphocytes # (Auto) 1.4 Thou/mm3 (1.0-4.8); Lymphocytes % (Auto) 9 % (10-50); Mean Corpuscular HGB Conc 34.7 g/dl (31.0-37.0); Mean Corpuscular Volume 89 fL (80-100); Monocytes # (Auto) 0.7 Thou/mm3 (0.0-0.8); Monocytes % (Auto) 5 % (0-12); Neutrophils % (Auto) 86 % (37-80); Nucleated Red Blood Cell % 0 /100 WBC (0); Platelet Count 114 Thou/mm3 (140-440); RDW Standard Deviation 43.2 fL (35.1-43.9); Red Blood Count 4.62 Miln/mm3 (4.50-5.90); White Blood Count 15.2 Thou/mm3 (3.8-10.6)
[2024-05-28 06:07] LABS: Alanine Aminotransferase 37 U/L (10-49); Albumin, Serum 3.8 gm/dL (3.5-5.0); Albumin/Globulin Ratio 1.5 (1.2-2.2); Alkaline Phosphatase 61 U/L (46-116); Anion Gap 6 (7-16); Aspartate Amino Transferase 28 U/L (0-34); BUN/Creatinine Ratio 10 Ratio (12-20); Bilirubin,Total 0.8 mg/dL (0.3-1.2); Blood Urea Nitrogen 8 mg/dL (9-23); Calcium 9.3 mg/dL (8.3-10.6); Calcium (Corrected) 9.5 mg/dL (8.5-10.1); Chloride 105 mMol/L (98-107); Creatinine (Component) 0.8 mg/dL (0.6-1.3); Globulin 2.6 gm/dL (2.3-3.5); Glucose 107 mg/dL (74-106); Osmolality,Calculated 264 (275-295); Potassium 3.9 mMol/L (3.4-5.1); Sodium 133 mMol/L (136-145); Total Protein 6.4 gm/dL (5.7-8.2); eGFR > 60 See Note
[2024-05-28 06:11] LABS: Glucose Estimated Average 94 mg/dL (80-131); Hemoglobin A1C 4.9 % Hgb (4.8-6.0)
[2024-05-28] MEDS: VANCOMYCIN/NS 1 GM IVPB 200 ML IV (06:17)
[2024-05-28] MEDS: FOLIC ACID 1 MG TABLET PO ×2 (08:18→20:38)
[2024-05-28] MEDS: amLODIPine BESYLATE 5 MG TABLET PO (08:19)
[2024-05-28] MEDS: LOSARTAN POTASSIUM 25 MG TABLET 100 MG PO (08:19)
[2024-05-28] MEDS: THIAMINE 100 MG TABLET PO ×2 (08:19→20:38)
[2024-05-28 08:33] LABS: Magnesium 1.8 mg/dL (1.6-2.6); Phosphorous 1.6 mg/dL (2.4-5.1)
--- NOTE | 2024-05-28 11:11 | PC.NURSE ---
PATIENT C/O SEVERE HEADACHE INTERMITTENTLY. STATES THE H/A'S STARTED SHORTLY AFTER LAG SWELLING AND REDNESS. H/A CONTROLLED WITH PAIN MED. RT LEG PAIN IS LESS THAN THE H/A UNLESS HE GET UP AND PUTS WEIGHT ON LEG, THEN PAIN IS SEVERE AND THROBBING. PATIENT ASKED IF LIGHT BOTHERS HIM, STATED YES SOME. ASKED IF HE COULD BEND HEAD DOWN CHIN TO CHEST, YES NO INCREASE IN HEAD DISCOMFORT.
--- NOTE | 2024-05-28 13:34 | PD.ADDPROG ---
Addendum Progress Note Addendum Date of report being addended: 05/28/24 Narrative: Face to face evaluation was performed by me. I have personally seen and examined the patient. I discussed the assessment and plan with the entire medicine team. I reviewed available medical records, imaging studies, laboratory results. I agree with the above subjective data, objective findings, assessment and plan except as corrected by me or noted below Right lower extremity cellulitis, Right lower extremity pain and swelling due to above Essential hypertension on losartan at home according to med rec. -Still requiring IV antibiotics, was switched to Unasyn IV, can stop vancomycin for now MRI negative for osteomyelitis. Would prefer single antibiotic regimen in his case with absence of sepsis and osteomyelitis/abscess. If improves on Unasyn can be discharged on amoxicillin/Augmentin. If does not improve then may be IV vancomycin with following de-escalation to Bactrim/doxycycline. Nonsteroid anti-inflammatory agents for swelling and pain. -Continue losartan and amlodipine for high blood pressure monitor labs, cellulitis?Borders are marked - Ambulation for DVT prophylaxis if remains mainly in bed can add heparin product as well
[2024-05-28] MEDS: KETOROLAC INJ 30 MG/ML VIAL IVP (13:40)
--- NOTE | 2024-05-28 13:55 | ESPR_ITS ---
<Statement entered by Jenny Zheng DO - 05/28/24 16:35> Senior attestation: Patient was examined and case was reviewed with team including attending physician. Note reviewed, I agree with most of its contents and agree with the patient's care. Will continue IV antibiotics today, vancomycin stopped and will continue unasyn. If clinical improvement, anticipate switching to PO antibiotics such as augmentin and/or doxycycline with discharge in 24-48 hours. Blood cultures negative on preliminary 24 hour read. Jenny Zheng DO PGY-3 Documentation for date of: 05/28/24 Subjective Subjective Interval history: Patient seen at bedside. No acute overnight events. Patient still reports pain, worse in the area of the right calf and sensitive to touch. Blood culture returned negative, pending final read. Pending urine culture. MRI of the right leg and foot was done which showed cellulitis but was negative for osteomyelitis. Will discontinue IV vancomycin and continue patient on Unasyn. With patient continues to improve, will switch Unasyn to Augmentin for discharge, otherwise will restart vancomycin and switch to doxycycline. Diabetes ruled out, A1c 4.9. Plan is to continue monitoring patient's clinical improvement if blood cultures final return negative. In the interim, we will manage pain with Toradol and ibuprofen. Exam Vital Signs Temp Pulse Resp BP Pulse Ox O2 Del Method 98.2 F 68 18 140/98 H 94 L Room Air 05/28/24 11:58 05/28/24 11:58 05/28/24 11:58 05/28/24 11:58 05/28/24 11:58 05/28/24 11:58 Narrative Exam Constitutional: well-developed, obese male, in no acute distress, lying in bed HEENT: NCAT, EOMI, reactive round pupils b/l, patent nares b/l. Lung: CTAB, no wheezing, no rhonchi Heart: Regular S1S2, no murmurs, gallops, or rubs Abdomen: Soft, non-distended, non-tender. No masses noted. Extremities: No cyanosis, clubbing, or edema, 1+ dorsalis pedis right foot, 2+ dorsalis pedis left foot . Neurologic: No focal sensory or motor deficits noted, AOx3, appropriate affect Skin: Erythema and swelling below the knee extending to the foot, tender to palpation of right ankle and calf, quarter size dry fissure of right heel noted Objective Labs 05/28/24 04:53 05/28/24 04:53 Labs: Laboratory Results - last 24 hr 05/28/24 04:53 WBC 15.2 H RBC 4.62 Hgb 14.3 Hct 41.2 MCV 89 MCH 31.0 MCHC 34.7 RDW Std Deviation 43.2 Plt Count 114 L Neut % (Auto) 86 H Lymph % (Auto) 9 L [place] % (Auto) 5 Eos % (Auto) 0 Baso % (Auto) 0 Neut # (Auto) 13.0 H Lymph # (Auto) 1.4 [place] # (Auto) 0.7 Eos # (Auto) 0.0 Baso # (Auto) 0.0 Immature Gran # (Auto) 0.08 H Absolute Nucleated RBC 0.00 Immature Gran % 1 H Nucleated RBC % 0 Sodium 133 L Potassium 3.9 Chloride 105 Carbon Dioxide 22.0 Anion Gap 6 L BUN 8 L Creatinine 0.8 Estim Creat Clear Calc 155.0 eGFR > 60 BUN/Creatinine Ratio 10 L Glucose [address] Glu mg/dL 94 Hemoglobin A1c 4.9 Calculated Osmolality 264 L Calcium 9.3 Corrected Calcium 9.5 Phosphorus 1.6 L Magnesium 1.8 Total Bilirubin 0.8 AST 28 ALT 37 Alkaline Phosphatase 61 Total Protein 6.4 Albumin 3.8 Globulin 2.6 Albumin/Globulin Ratio 1.5 Quality Measures Quality Measures sepsis Current suspected stage: sepsis Possible source: skin/soft tissue Blood cultures ordered: yes Antibiotic ordered: Yes Assessment & Plan Assessment Current Active Medications: Generic Name Dose Route Start Last Admin Trade Name Freq PRN Reason Stop Dose Admin Acetaminophen 650 mg 05/26/24 22:55 05/27/24 02:56 Acetaminophen 325 Mg Tablet PO 06/25/24 22:54 650 mg Q6H PRN Administration Fever >101.5 Amlodipine Besylate 5 mg 05/27/24 09:00 05/28/24 08:19 Amlodipine Besylate 5 Mg Tablet PO 06/26/24 08:59 5 mg QDAY VA Administration Folic Acid 1 mg 05/27/24 09:00 05/28/24 08:18 Folic Acid 1 Mg Tablet PO 06/01/24 08:59 1 mg BID VA Administration Heparin Sodium (Porcine) 5,000 unit 05/28/24 21:00 Heparin Sod Inj 5000 Unit/Ml Vial SC 06/11/24 20:59 Q12HR VA Ampicillin Sodium/Sulbactam 100 mls @ 200 mls/hr 05/27/24 13:00 05/28/24 13:33 Sodium 3 gm/ Sodium Chloride IV 06/03/24 12:59 200 mls/hr Q6HR VA Administration Ibuprofen 600 mg 05/28/24 21:00 Ibuprofen Tab 600 Mg Tablet PO 06/27/24 20:59 BID VA Lorazepam 1 mg 05/27/24 12:13 Lorazepam 2 Mg/Ml Vial IV 06/01/24 04:34 Q4H PRN CIWA SCORE 14-19 Lorazepam 2 mg 05/27/24 12:14 Lorazepam 2 Mg/Ml Vial IV 06/01/24 04:34 Q4H PRN CIWA SCORE 20-25 Lorazepam 4 mg 05/27/24 12:14 Lorazepam 2 Mg/Ml Vial IVP 06/01/24 12:13 Q4H PRN CIWA >25 Losartan Potassium 100 mg 05/27/24 09:00 05/28/24 08:19 Losartan Potassium 25 Mg Tablet PO 06/26/24 08:59 100 mg QDAY VA Administration Ondansetron HCl 4 mg 05/26/24 22:55 Ondansetron Inj 2 Mg/Ml Inj 2 Ml IV 06/25/24 22:54 Q6H PRN NAUSEA OR VOMITING Protocol Oxycodone/Acetaminophen 1 tab 05/26/24 22:55 05/28/24 08:18 Oxycodone/Apap 5/325 Tablet PO 05/31/24 22:54 1 tab Q6H PRN Administration PAIN SCALE 4-6 (Moderate Thiamine HCl 100 mg 05/27/24 09:00 05/28/24 08:19 Thiamine 100 Mg Tablet PO 06/01/24 08:59 100 mg BID VA Administration Plan Summary: The patient is a 54-year-old male with significant medical history for obesity, b/l hip replacement and hypertension came into ED for right leg swelling and pain that started x 1day prior to presentation. Patient was administered bolus IVF per sepsis protocol in the ED. Tibia/fibula x-ray showed no miguelina cortical bone obstruction. Right foot x-ray showed osteopenia and no miguelina cortical bone obstruction. Ultrasound Doppler of right lower extremity showed no DVT. He was admitted for cellulitis requiring IV antibiotics, now on Unasyn and Vancomycin. #Sepsis likely secondary to cellulitis-improving #Right heel ulcer #Leukocytosis Patient presented with right foot pain and swollen right leg/foot with chills and fever. Considering patient's unilateral right foot erythema, fever and tenderness on presentation, he clinically presents with cellulitis picture. His pain is not out of proportion and no crepitus on palpation of the skin; therefore necrotizing fasciitis can be ruled out. He was tachycardic with WBC elevated and elevated Pro-Meng meeting SIRS criteria. On physical exam, unilateral below the knee swelling skin appears erythematous and tender to touch. Initial stages of ulceration present on right heel. Tibia/fibula x-ray showed no miguelina cortical bone obstruction. Right foot x-ray showed osteopenia and no miguelina cortical bone obstruction Ultrasound Doppler of right lower extremity showed no DVT. 05/28/2024- Patient still reports pain, worse in the area of the right calf and sensitive to touch. Blood culture returned negative, pending final read. Pending urine culture. MRI of the right leg and foot was done which showed cellulitis but was negative for osteomyelitis. Will discontinue IV vancomycin and continue patient on Unasyn. With patient continues to improve, will switch Unasyn to Augmentin for discharge, otherwise will restart vancomycin and switch to doxycycline. Diabetes ruled out, A1c 4.9. Plan is to continue monitoring patient's clinical improvement if blood cultures final return negative. Plan: ?DC IV vancomycin ?Continue Unasyn 3 g every 6 hours (05/27/24- Day 2 -Add Toradol and Ibuprofen for pain management ?Pending final blood and urine culture ? Follow-up CBC #Thrombocytopenia Possibly secondary to alcohol use versus underlying blood clotting disorder Patient has been history of alcoholism and this may be contributing to his condition. Platelets low at 132. Plan: ?CBC in a.m. #Alcohol abuse Patient endorses to drinking about 6 beers daily. He states that his last drink was about 2 days ago. Plan: - Counseled on alcohol cessation - [facility] protocol as needed - Thiamine and folic acid #Hypertension Chronic, uncontrolled Patient admits to taking amlodipine and losartan. Plan: ? Continue amlodipine 5 mg once daily and losartan 100 mg once daily ? Labetalol 10 mg IV as needed for SBP greater than 170 #Obesity BMI 30 9.4K, 139. 2 kg Lipid panel: triglycerides 72, cholesterol 144, HDL 72. 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
[2024-05-28 14:41] LABS: Vancomycin,Trough 9.1 mcg/mL (5.0-10.0)
[2024-05-28] MEDS: IBUPROFEN TAB 600 MG TABLET PO (20:38)
[2024-05-29] VITALS (11 sets, daily range): BP systolic 103–134; BP diastolic 78–98; PULSE 63–94; RESP 17–96; TEMP 36.1–36.6; O2SAT 93–97
[2024-05-29] MEDS: AMPICILLIN/SULBAC INJ 3 GM in SODIUM CHLORIDE 0.9% (P) 100 ML IV ×3 (00:19→11:34)
[2024-05-29] MEDS: oxyCODONE/APAP 5/325 TABLET 1 TAB PO ×4 (05:28→23:32)
[2024-05-29 05:34] LABS: Basophils # (Auto) 0.1 Thou/mm3 (0.0-0.2); Basophils % (Auto) 0 % (0-2.5); Eosinophils # (Auto) 0.1 Thou/mm3 (0.0-0.5); Eosinophils % (Auto) 1 % (0-10); Hemoglobin 14.5 g/dL (13.5-16.0); Immature Granulocytes % (Auto) 0 % (0-0); Immature Granulocytes Auto 0.04 Thou/mm3 (0.00-0.00); Lymphocytes % (Auto) 18 % (10-50); Mean Corpuscular HGB Conc 34.5 g/dl (31.0-37.0); Mean Corpuscular Volume 90 fL (80-100); Monocytes # (Auto) 0.8 Thou/mm3 (0.0-0.8); Monocytes % (Auto) 7 % (0-12); Neutrophils # (Auto) 8.2 Thou/mm3 (1.8-7.7); Neutrophils % (Auto) 73 % (37-80); Nucleated Red Blood Cell % 0 /100 WBC (0); Platelet Count 144 Thou/mm3 (140-440); RDW Standard Deviation 43.4 fL (35.1-43.9); Red Blood Count 4.68 Miln/mm3 (4.50-5.90); White Blood Count 11.2 Thou/mm3 (3.8-10.6)
[2024-05-29 06:14] LABS: Alanine Aminotransferase 34 U/L (10-49); Albumin, Serum 3.8 gm/dL (3.5-5.0); Albumin/Globulin Ratio 1.5 (1.2-2.2); Alkaline Phosphatase 70 U/L (46-116); Anion Gap 8 (7-16); Aspartate Amino Transferase 27 U/L (0-34); BUN/Creatinine Ratio 13 Ratio (12-20); Bilirubin,Total 0.6 mg/dL (0.3-1.2); Blood Urea Nitrogen 10 mg/dL (9-23); Calcium 9.1 mg/dL (8.3-10.6); Calcium (Corrected) 9.3 mg/dL (8.5-10.1); Carbon Dioxide 26.7 mMol/L (20.0-31.0); Chloride 101 mMol/L (98-107); Creatinine (Component) 0.8 mg/dL (0.6-1.3); Globulin 2.6 gm/dL (2.3-3.5); Glucose 89 mg/dL (74-106); Osmolality,Calculated 269 (275-295); Phosphorous 2.4 mg/dL (2.4-5.1); Potassium 3.5 mMol/L (3.4-5.1); Sodium 136 mMol/L (136-145); Total Protein 6.4 gm/dL (5.7-8.2); eGFR > 60 See Note
[2024-05-29] MEDS: POTASSIUM CHLORIDE 20 mEq TABCR 40 MEQ PO (09:15)
[2024-05-29] MEDS: THIAMINE 100 MG TABLET PO ×2 (09:50→20:20)
[2024-05-29] MEDS: amLODIPine BESYLATE 5 MG TABLET PO (09:50)
[2024-05-29] MEDS: IBUPROFEN TAB 600 MG TABLET PO ×2 (09:51→20:20)
[2024-05-29] MEDS: LOSARTAN POTASSIUM 25 MG TABLET 100 MG PO (09:51)
[2024-05-29] MEDS: FOLIC ACID 1 MG TABLET PO ×2 (09:52→20:20)
[2024-05-29] MEDS: HEPARIN SOD INJ 5000 UNIT/ML VIAL SC ×2 (10:46→20:20)
--- NOTE | 2024-05-29 14:50 | ESPR_ITS ---
Documentation for date of: 05/29/24 Subjective Subjective Interval history: Overnight events, lab/imaging results, and notes reviewed. Patient examined bedside, reports continued right leg pain, also endorses headache that is noted to improve with pain medications. On examination, right leg appears to show some improvement anteriorly, however posteriorly appears to slight extend beyond the marker noted on admission. WBC noted to improve however, blood cultures remain negative on preliminary 48 hour reads. Will continue IV unasyn for now, may consider adjusting antibiotic regimen if symptoms do not clinically improve. Exam Vital Signs Temp Pulse Resp BP Pulse Ox O2 Del Method 97.4 F 86 17 134/98 H 96 Room Air 05/29/24 12:00 05/29/24 12:00 05/29/24 12:00 05/29/24 12:00 05/29/24 12:00 05/29/24 12:00 Narrative Exam General: AOx3, cooperative HEENT: Atraumatic/normocephalic, VAUGHN Heart: RRR, S1 and S2 without clicks or murmurs Lungs: Clear on auscultation bilaterally, no difficulty breathing Abdomen: Soft, nontender. Bowel sounds present on all quadrants, no organomegaly Skin: Erythema on right leg below knee and extending to foot, tenderness mostly noted on right ankle, fissure of right heel, posteriorly erythema noted to extend beyond demarcation noted on admission Neuro: No focal neurological deficits noted Objective Labs 05/29/24 04:05 05/29/24 04:05 Labs: Laboratory Results - last 24 hr 05/29/24 04:05 WBC 11.2 H RBC 4.68 Hgb 14.5 Hct 42.0 MCV 90 MCH 31.0 MCHC 34.5 RDW Std Deviation 43.4 Plt Count 144 D Neut % (Auto) 73 Lymph % (Auto) 18 Saunders % (Auto) 7 Eos % (Auto) 1 Baso % (Auto) 0 Neut # (Auto) 8.2 H Lymph # (Auto) 2.0 Saunders # (Auto) 0.8 Eos # (Auto) 0.1 Baso # (Auto) 0.1 Immature Gran # (Auto) 0.04 H Absolute Nucleated RBC 0.00 Immature Gran % 0 Nucleated RBC % 0 Sodium 136 Potassium 3.5 Chloride 101 Carbon Dioxide 26.7 Anion Gap 8 BUN 10 Creatinine 0.8 Estim Creat Clear Calc 155.0 eGFR > 60 BUN/Creatinine Ratio 13 Glucose 89 Calculated Osmolality 269 L Calcium 9.1 Corrected Calcium 9.3 Phosphorus 2.4 Magnesium 2.0 Total Bilirubin 0.6 AST 27 ALT 34 Alkaline Phosphatase 70 Total Protein 6.4 Albumin 3.8 Globulin 2.6 Albumin/Globulin Ratio 1.5 Quality Measures Quality Measures sepsis Current suspected stage: ruled out (Has been treated) Possible source: skin/soft tissue Blood cultures ordered: yes Antibiotic ordered: Yes Assessment & Plan Assessment Current Active Medications: Generic Name Dose Route Start Last Admin Trade Name Freq PRN Reason Stop Dose Admin Acetaminophen 650 mg 05/26/24 22:55 05/27/24 02:56 Acetaminophen 325 Mg Tablet PO 06/25/24 22:54 650 mg Q6H PRN Administration Fever >101.5 Amlodipine Besylate 5 mg 05/27/24 09:00 05/29/24 09:50 Amlodipine Besylate 5 Mg Tablet PO 06/26/24 08:59 5 mg QDAY VA Administration Folic Acid 1 mg 05/27/24 09:00 05/29/24 09:52 Folic Acid 1 Mg Tablet PO 06/01/24 08:59 1 mg BID VA Administration Heparin Sodium (Porcine) 5,000 unit 05/28/24 21:00 05/29/24 10:46 Heparin Sod Inj 5000 Unit/Ml Vial SC 06/11/24 20:59 5,000 unit Q12HR VA Administration Ampicillin Sodium/Sulbactam 100 mls @ 200 mls/hr 05/27/24 13:00 05/29/24 11:34 Sodium 3 gm/ Sodium Chloride IV 06/03/24 12:59 200 mls/hr Q6HR VA Administration Ibuprofen 600 mg 05/28/24 21:00 05/29/24 09:51 Ibuprofen Tab 600 Mg Tablet PO 06/27/24 20:59 600 mg BID VA Administration Lorazepam 1 mg 05/27/24 12:13 Lorazepam 2 Mg/Ml Vial IV 06/01/24 04:34 Q4H PRN CIWA SCORE 14-19 Lorazepam 2 mg 05/27/24 12:14 Lorazepam 2 Mg/Ml Vial IV 06/01/24 04:34 Q4H PRN CIWA SCORE 20-25 Lorazepam 4 mg 05/27/24 12:14 Lorazepam 2 Mg/Ml Vial IVP 06/01/24 12:13 Q4H PRN CIWA >25 Losartan Potassium 100 mg 05/27/24 09:00 05/29/24 09:51 Losartan Potassium 25 Mg Tablet PO 06/26/24 08:59 100 mg QDAY VA Administration Ondansetron HCl 4 mg 05/26/24 22:55 Ondansetron Inj 2 Mg/Ml Inj 2 Ml IV 06/25/24 22:54 Q6H PRN NAUSEA OR VOMITING Protocol Oxycodone/Acetaminophen 1 tab 05/26/24 22:55 05/29/24 11:33 Oxycodone/Apap 5/325 Tablet PO 05/31/24 22:54 1 tab Q6H PRN Administration PAIN SCALE 4-6 (Moderate Thiamine HCl 100 mg 05/27/24 09:00 05/29/24 09:50 Thiamine 100 Mg Tablet PO 06/01/24 08:59 100 mg BID VA Administration Plan The patient is a 54-year-old male with significant medical history for obesity, b/l hip replacement and hypertension came into ED for right leg swelling and pain that started x 1day prior to presentation. Patient was administered bolus IVF per sepsis protocol in the ED. Tibia/fibula x-ray showed no miguelina cortical bone obstruction. Right foot x-ray showed osteopenia and no miguelina cortical bone obstruction. Ultrasound Doppler of right lower extremity showed no DVT. He was admitted for cellulitis requiring IV antibiotics, now on Unasyn and Vancomycin. #Sepsis likely secondary to right leg cellulitis #Right heel ulcer He was tachycardic with WBC elevated and elevated Pro-Meng meeting SIRS criteria. Tibia/fibula x-ray showed no miguelina cortical bone obstruction. Right foot x-ray showed osteopenia and no miguelina cortical bone obstruction Ultrasound Doppler of right lower extremity showed no DVT. MRI of the right leg and foot was done which showed cellulitis but was negative for osteomyelitis. Plan is to continue monitoring patient's clinical improvement if blood cultures final return negative. Plan: ?DC IV vancomycin ?Continue Unasyn 3 g every 6 hours (05/27/24- present), may de-escalate or change antibiotics based on clinical symptoms 05/30 -Add Toradol and Ibuprofen for pain management ? Blood cultures negative on 48 hour preliminary reads ? Follow-up CBC #Thrombocytopenia Possibly secondary to alcohol use versus underlying blood clotting disorder Patient has been history of alcoholism and this may be contributing to his condition. Platelets low at 132. Plan: ?CBC in a.m. #History of alcohol use Patient endorses to drinking about 6 beers daily. He states that his last drink was about 2 days ago. Plan: - Counseled on alcohol cessation - [facility] protocol as needed - Thiamine and folic acid #History of Hypertension Chronic, uncontrolled Patient admits to taking amlodipine and losartan. Plan: ? Continue amlodipine 5 mg once daily and losartan 100 mg once daily ? Labetalol 10 mg IV as needed for SBP greater than 170 #Obesity BMI 30 9.4K, 139. 2 kg Lipid panel: triglycerides 72, cholesterol 144, HDL 72. 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 Vito Zheng DO PGY-3 Attending Provider Attestation/Addendum I have discussed and was present for the essential components of the history, physical examination, diagnosis, and treatment plan with the resident. I agree with the patient's care as documented by the resident and amended herein by me. Toy Padron DO. Patient seen and evaluated this AM. Vital signs stable, patient afebrile overnight. Patient still has significant pain in his right lower extremity. WBC down trended to 11.2 today. All cultures negative thus far. Will discontinue Unasyn de-escalated to Ancef 2 g every 8 hours for now. MRI of the patient's right lower extremity demonstrating extensive cellulitis however no osteomyelitis this time. Will continue to monitor closely Although this document has been carefully reviewed, there may still be some phonetic and other typographical errors. These errors are purely grammatical due to imperfections in the software program and should not be construed in any way to compromise the substance of the patient's medical care during this visit.
[2024-05-29] MEDS: ceFAZolin/D5W 2 GM IV 2 GM/100 ML BAG IV ×2 (17:00→21:03)
--- NOTE | 2024-05-29 20:32 | PC.NURSE ---
Noted rashes on pt back and pt complains of itchiness but no SOB, MD Kostas English made aware, MD will come and check on pt.
[2024-05-29] MEDS: DiphenhydrAMINE INJ 50 MG/ML VIAL 25 MG IVP (21:03)
[2024-05-30] VITALS (10 sets, daily range): BP systolic 114–134; BP diastolic 76–99; PULSE 60–105; RESP 16–99; TEMP 36.1–36.3; O2SAT 94–98
[2024-05-30] MEDS: ceFAZolin/D5W 2 GM IV 2 GM/100 ML BAG IV ×3 (05:34→23:49)
[2024-05-30] MEDS: oxyCODONE/APAP 5/325 TABLET 1 TAB PO ×3 (05:34→18:33)
[2024-05-30 05:38] LABS: Basophils # (Auto) 0.1 Thou/mm3 (0.0-0.2); Basophils % (Auto) 1 % (0-2.5); Eosinophils # (Auto) 0.2 Thou/mm3 (0.0-0.5); Eosinophils % (Auto) 3 % (0-10); Hematocrit 41.4 % (41.0-53.0); Hemoglobin 14.2 g/dL (13.5-16.0); Immature Granulocytes % (Auto) 1 % (0-0); Immature Granulocytes Auto 0.05 Thou/mm3 (0.00-0.00); Lymphocytes # (Auto) 2.2 Thou/mm3 (1.0-4.8); Lymphocytes % (Auto) 28 % (10-50); Mean Corpuscular HGB Conc 34.3 g/dl (31.0-37.0); Mean Corpuscular Hemoglobin 31.2 pg (25.0-35.0); Mean Corpuscular Volume 91 fL (80-100); Monocytes # (Auto) 0.7 Thou/mm3 (0.0-0.8); Monocytes % (Auto) 9 % (0-12); Neutrophils # (Auto) 4.6 Thou/mm3 (1.8-7.7); Neutrophils % (Auto) 59 % (37-80); Nucleated Red Blood Cell % 0 /100 WBC (0); Platelet Count 198 Thou/mm3 (140-440); RDW Standard Deviation 44.3 fL (35.1-43.9); Red Blood Count 4.55 Miln/mm3 (4.50-5.90); White Blood Count 7.8 Thou/mm3 (3.8-10.6)
[2024-05-30 06:37] LABS: Anion Gap 9 (7-16); BUN/Creatinine Ratio 13 Ratio (12-20); Blood Urea Nitrogen 12 mg/dL (9-23); Calcium 9.1 mg/dL (8.3-10.6); Carbon Dioxide 24.1 mMol/L (20.0-31.0); Chloride 102 mMol/L (98-107); Creatinine (Component) 0.9 mg/dL (0.6-1.3); Estimated Creatinine Clearance 137.8 mL/min (>60); Glucose 91 mg/dL (74-106); Magnesium 1.9 mg/dL (1.6-2.6); Osmolality,Calculated 269 (275-295); Phosphorous 3.2 mg/dL (2.4-5.1); Potassium 3.7 mMol/L (3.4-5.1); Sodium 135 mMol/L (136-145); eGFR > 60 See Note
[2024-05-30] MEDS: LOSARTAN POTASSIUM 25 MG TABLET 100 MG PO (09:03)
[2024-05-30] MEDS: FOLIC ACID 1 MG TABLET PO ×2 (09:03→20:25)
[2024-05-30] MEDS: IBUPROFEN TAB 600 MG TABLET PO ×2 (09:04→20:25)
[2024-05-30] MEDS: amLODIPine BESYLATE 5 MG TABLET PO (09:04)
[2024-05-30] MEDS: HEPARIN SOD INJ 5000 UNIT/ML VIAL SC ×2 (09:05→23:52)
[2024-05-30] MEDS: THIAMINE 100 MG TABLET PO ×2 (09:05→20:25)
[2024-05-30] MEDS: POTASSIUM CHLORIDE 20 mEq TABCR 40 MEQ PO (09:30)
--- NOTE | 2024-05-30 16:38 | ESPR_ITS ---
<Statement entered by Edmund Manriquez MD - 06/04/24 16:32> I reviewed above note and agree with findings and plans. I have also personally examined the patient with medicine team and went over assessment and plan with medical team including international first officer and resident physician. Documentation for date of: 05/30/24 Subjective Subjective Interval history: Overnight events, lab/imaging results, and notes reviewed. Patient examined bedside, reports feeling some improvement to his leg however continues to have tenderness. Overnight was given benadryl for possible rash on back, however no rashes were appreciated today. Will continue IV cefazolin for today, possible de-escalation to oral antibiotics pending clinical improvement. Exam Vital Signs Temp Pulse Resp BP Pulse Ox O2 Del Method 97.2 F 90 18 118/83 98 Room Air 05/30/24 16:00 05/30/24 16:00 05/30/24 16:00 05/30/24 16:00 05/30/24 16:00 05/30/24 16:00 Narrative Exam General: AOx3, cooperative HEENT: Atraumatic/normocephalic, VAUGHN Heart: RRR, S1 and S2 without clicks or murmurs Lungs: Clear on auscultation bilaterally, no difficulty breathing Abdomen: Soft, nontender. Bowel sounds present on all quadrants, no organomegaly Skin: Erythema on right leg below knee and extending to foot, tenderness mostly noted on right ankle, fissure of right heel, posteriorly erythema noted to extend beyond demarcation noted on admission Neuro: No focal neurological deficits noted Objective Labs 05/30/24 04:45 05/30/24 04:45 Labs: Laboratory Results - last 24 hr 05/30/24 04:45 WBC 7.8 RBC 4.55 Hgb 14.2 Hct 41.4 MCV 91 MCH 31.2 MCHC 34.3 RDW Std Deviation 44.3 H Plt Count 198 D Neut % (Auto) 59 Lymph % (Auto) 28 Moffat % (Auto) 9 Eos % (Auto) 3 Baso % (Auto) 1 Neut # (Auto) 4.6 Lymph # (Auto) 2.2 Moffat # (Auto) 0.7 Eos # (Auto) 0.2 Baso # (Auto) 0.1 Immature Gran # (Auto) 0.05 H Absolute Nucleated RBC 0.00 Immature Gran % 1 H Nucleated RBC % 0 Sodium 135 L Potassium 3.7 Chloride 102 Carbon Dioxide 24.1 Anion Gap 9 BUN 12 Creatinine 0.9 Estim Creat Clear Calc 137.8 eGFR > 60 BUN/Creatinine Ratio 13 Glucose 91 Calculated Osmolality 269 L Calcium 9.1 Phosphorus 3.2 Magnesium 1.9 Quality Measures Quality Measures sepsis Current suspected stage: ruled out (Treated) Possible source: skin/soft tissue Blood cultures ordered: yes Antibiotic ordered: Yes Assessment & Plan Assessment Current Active Medications: Generic Name Dose Route Start Last Admin Trade Name Freq PRN Reason Stop Dose Admin Acetaminophen 650 mg 05/26/24 22:55 05/27/24 02:56 Acetaminophen 325 Mg Tablet PO 06/25/24 22:54 650 mg Q6H PRN Administration Fever >101.5 Amlodipine Besylate 5 mg 05/27/24 09:00 05/30/24 09:04 Amlodipine Besylate 5 Mg Tablet PO 06/26/24 08:59 5 mg QDAY VA Administration Folic Acid 1 mg 05/27/24 09:00 05/30/24 09:03 Folic Acid 1 Mg Tablet PO 06/01/24 08:59 1 mg BID VA Administration Heparin Sodium (Porcine) 5,000 unit 05/28/24 21:00 05/30/24 09:05 Heparin Sod Inj 5000 Unit/Ml Vial SC 06/11/24 20:59 5,000 unit Q12HR VA Administration Cefazolin Sodium 2 gm in 100 mls @ 100 mls/hr 05/29/24 16:02 05/30/24 14:05 Ancef 2gm Ivpb IV 06/05/24 18:00 100 mls/hr Q8HR VA Administration Ibuprofen 600 mg 05/28/24 21:00 05/30/24 09:04 Ibuprofen Tab 600 Mg Tablet PO 06/27/24 20:59 600 mg BID VA Administration Lorazepam 1 mg 05/27/24 12:13 Lorazepam 2 Mg/Ml Vial IV 06/01/24 04:34 Q4H PRN CIWA SCORE 14-19 Lorazepam 2 mg 05/27/24 12:14 Lorazepam 2 Mg/Ml Vial IV 06/01/24 04:34 Q4H PRN CIWA SCORE 20-25 Lorazepam 4 mg 05/27/24 12:14 Lorazepam 2 Mg/Ml Vial IVP 06/01/24 12:13 Q4H PRN CIWA >25 Losartan Potassium 100 mg 05/27/24 09:00 05/30/24 09:03 Losartan Potassium 25 Mg Tablet PO 06/26/24 08:59 100 mg QDAY VA Administration Ondansetron HCl 4 mg 05/26/24 22:55 Ondansetron Inj 2 Mg/Ml Inj 2 Ml IV 06/25/24 22:54 Q6H PRN NAUSEA OR VOMITING Protocol Oxycodone/Acetaminophen 1 tab 05/26/24 22:55 05/30/24 12:25 Oxycodone/Apap 5/325 Tablet PO 05/31/24 22:54 1 tab Q6H PRN Administration PAIN SCALE 4-6 (Moderate Thiamine HCl 100 mg 05/27/24 09:00 05/30/24 09:05 Thiamine 100 Mg Tablet PO 06/01/24 08:59 100 mg BID VA Administration Plan The patient is a 54-year-old male with significant medical history for obesity, b/l hip replacement and hypertension came into ED for right leg swelling and pain that started x 1day prior to presentation. Patient was administered bolus IVF per sepsis protocol in the ED. Tibia/fibula x-ray showed no miguelina cortical bone obstruction. Right foot x-ray showed osteopenia and no miguelina cortical bone obstruction. Ultrasound Doppler of right lower extremity showed no DVT. He was admitted for cellulitis requiring IV antibiotics, now on Unasyn and Vancomycin. #Sepsis likely secondary to right leg cellulitis #Right heel ulcer He was tachycardic with WBC elevated and elevated Pro-Meng meeting SIRS criteria. Tibia/fibula x-ray showed no miguelina cortical bone obstruction. Right foot x-ray showed osteopenia and no miguelina cortical bone obstruction Ultrasound Doppler of right lower extremity showed no DVT. MRI of the right leg and foot was done which showed cellulitis but was negative for osteomyelitis. Plan is to continue monitoring patient's clinical improvement if blood cultures final return negative. Plan: ?DC IV vancomycin ?Unasyn 3 g every 6 hours (05/27-) ?IV cefazolin 2g q8hr (05/29 - present) ?Add Toradol and Ibuprofen for pain management ? Blood cultures negative on 48 hour preliminary reads ? Will consider de-escalation of antibiotics to oral regimen 05/31 pending clinical improvement #Thrombocytopenia Possibly secondary to alcohol use versus underlying blood clotting disorder Patient has been history of alcoholism and this may be contributing to his condition. Platelets low at 132. Improved to 198 on 05/30 Plan: ?Continue monitor platelet levels #History of alcohol use Patient endorses to drinking about 6 beers daily. Last drink ~ 05/24 Plan: - Counseled on alcohol cessation - [facility] protocol as needed - Thiamine and folic acid #History of Hypertension Chronic, uncontrolled Patient admits to taking amlodipine and losartan. Plan: ? Continue amlodipine 5 mg once daily and losartan 100 mg once daily ? Labetalol 10 mg IV as needed for SBP greater than 170 #Obesity BMI 30 9.4K, 139. 2 kg Lipid panel: triglycerides 72, cholesterol 144, HDL 72. 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 Declan Zheng, DO PGY-3
[2024-05-31] VITALS: BP 134/87; PULSE 91; RESP 18; TEMP 36.1; O2SAT 97
[2024-05-31] MEDS: oxyCODONE/APAP 5/325 TABLET 1 TAB PO ×2 (00:30→07:07)
[2024-05-31 04:00] VITALS: BP 129/93; PULSE 90; RESP 17; TEMP 36.3; O2SAT 95
[2024-05-31] MEDS: ceFAZolin/D5W 2 GM IV 2 GM/100 ML BAG IV (05:38)
[2024-05-31 05:50] LABS: Basophils # (Auto) 0.1 Thou/mm3 (0.0-0.2); Basophils % (Auto) 1 % (0-2.5); Eosinophils # (Auto) 0.3 Thou/mm3 (0.0-0.5); Eosinophils % (Auto) 4 % (0-10); Hematocrit 43.8 % (41.0-53.0); Immature Granulocytes % (Auto) 1 % (0-0); Immature Granulocytes Auto 0.07 Thou/mm3 (0.00-0.00); Lymphocytes # (Auto) 2.1 Thou/mm3 (1.0-4.8); Lymphocytes % (Auto) 26 % (10-50); Mean Corpuscular HGB Conc 34.2 g/dl (31.0-37.0); Mean Corpuscular Hemoglobin 31.1 pg (25.0-35.0); Mean Corpuscular Volume 91 fL (80-100); Monocytes # (Auto) 0.9 Thou/mm3 (0.0-0.8); Monocytes % (Auto) 11 % (0-12); Neutrophils # (Auto) 4.6 Thou/mm3 (1.8-7.7); Neutrophils % (Auto) 57 % (37-80); Nucleated Red Blood Cell % 0 /100 WBC (0); Platelet Count 243 Thou/mm3 (140-440); Red Blood Count 4.83 Miln/mm3 (4.50-5.90)
[2024-05-31 06:27] LABS: Anion Gap 7 (7-16); BUN/Creatinine Ratio 16 Ratio (12-20); Blood Urea Nitrogen 14 mg/dL (9-23); Calcium 9.4 mg/dL (8.3-10.6); Carbon Dioxide 26.8 mMol/L (20.0-31.0); Chloride 101 mMol/L (98-107); Creatinine (Component) 0.9 mg/dL (0.6-1.3); Estimated Creatinine Clearance 137.8 mL/min (>60); Glucose 87 mg/dL (74-106); Osmolality,Calculated 269 (275-295); Potassium 4.5 mMol/L (3.4-5.1); Sodium 135 mMol/L (136-145); eGFR > 60 See Note
[2024-05-31 08:00] VITALS: BP 120/89; PULSE 91; RESP 14; TEMP 36.8; O2SAT 97
[2024-05-31 08:55] VITALS: BP 120/89; PULSE 91
[2024-05-31] MEDS: amLODIPine BESYLATE 5 MG TABLET PO (08:55)
[2024-05-31] MEDS: FOLIC ACID 1 MG TABLET PO (08:55)
[2024-05-31] MEDS: IBUPROFEN TAB 600 MG TABLET PO (08:56)
[2024-05-31] MEDS: THIAMINE 100 MG TABLET PO (08:56)
[2024-05-31 08:57] VITALS: BP 120/89; PULSE 91
[2024-05-31] MEDS: LOSARTAN POTASSIUM 25 MG TABLET 100 MG PO (08:57)
[2024-05-31] MEDS: HEPARIN SOD INJ 5000 UNIT/ML VIAL SC (08:58)
[2024-05-31 11:12] VITALS: BP 130/94; PULSE 89; RESP 16; TEMP 36.8; O2SAT 96
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
== END 2024-05-31 12:18 | disposition home or self-care (01) | DRG 720 ==
LOC: SERX 21:10 → SERHOLD 05-27 00:04 → S3SX 05-27 01:49
PROVIDERS: Internal Medicine; Physician Assistant; Student in an Organized Health Care Education/Training Program; Admitting Provider Student in an Organized Health Care Education/Training Program; Emergency Provider Emergency Medicine; PCP Physician Assistant; Visit Provider Internal Medicine
DX: A41.9 Sepsis, unspecified organism (principal); L03.115 Cellulitis of right lower limb; E66.9 Obesity, unspecified; Z68.39 Body mass index [BMI] 39.0-39.9, adult; M85.871 Other specified disorders of bone density and structure, right ankle and foot; D69.6 Thrombocytopenia, unspecified; L97.419 Non-pressure chronic ulcer of right heel and midfoot with unspecified severity; M60.871 Other myositis, right ankle and foot; I10 Essential (primary) hypertension; F10.10 Alcohol abuse, uncomplicated; Z96.643 Presence of artificial hip joint, bilateral
CPT/HCPCS: 36415; 73590; 73630; 73720; 80048; 80053; 80061; 80202; 81001; 83036; 83605; 83735; 84100; 84145; 84443; 85025; 85652; 86140; 87040; 87086; 93971; 96365; 96366; 96367; 96368; 96375; 99285; A9579; J0295; J0689; J0696; J1200; J1643; J1885; J2060; J3370; J3411; J3490; J7030; S0077; A9270; J0690; J0736; J1644; J1920